=== PATIENT | female | born 1960 | race Caucasian/White ===

== ENCOUNTER 2017-04-02 16:00 | Inpatient (IN) ==
[2017-04-02] MEDS ORDERED: LORazepam 2 MG/1 ML VIAL IV STA ×2 (16:19→17:09)
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
[2017-04-02] MEDS ORDERED: LORazepam 2 MG/1 ML VIAL ONE ×2 (16:40→17:12)
--- NOTE | 2017-04-02 16:43 | CT Report ---
History: Seizure Date: 04/02/2017 Study: CT head without contrast Comparison exam: September 01, [address] sections were obtained through the head without IV contrast. The ventricles are midline in position without evidence of hydrocephalus. There is no mass or parenchymal hemorrhage. There is no gross CT evidence of acute cortical stroke. There is no extra-axial hematoma. The partially visualized paranasal sinuses and mastoid air cells are clear. Impression: No acute intracranial process. This CT exam was performed using one or more the following dose reduction techniques: Automated exposure control, adjustment of the MA and/or KV according to patient size, or use of iterative reconstruction technique. PROCEDURE INTERPRETED AT [facility] DEPARTMENT OF RADIOLOGY Final Report Signed by: Dr. Maia Hinkle
[2017-04-02 17:19] LABS: Apearance,Urine Slightly Hazy (Clear); Bacteria,Urine Many /HPF (Few); Bilirubin,Urine Negative (Negative); Blood, Urine Negative (Negative); Glucose,Urine (UA) Negative (Negative); Ketones,Urine Negative (Negative); Mucus,Urine Occasional /LPF (Occasional); Nitrite,Urine Negative (Negative); Protein,Urine Negative; RBC,Urine 3 /HPF (0-4); Squamous Epithelial Cell,Urine Few /HPF (0-10); Urine Color Yellow (Yellow); Urine Specific Gravity 1.017 (1.001-1.035); Urine Urobilinogen < 2.0 EU/DL (0.2-1.0); WBC,Urine 15 /HPF (0-6)
--- NOTE | 2017-04-02 17:20 | EKG Report ---
Stationary ECG Study [facility] ER Test Date: 04/02/2017 5:18:44 PM Pat Name: LISA PEREZ Department: Room: Gender: F Senior Power Scheduler: : 1960 Requested by: Salazar Buck Order Number: [id number] Reading MD: ARIK GAR Intervals [place] Rate: 118 P: 63 TX: 129 QRS: -7 QRSD: 75 T: 52 QT: 340 QTc: 410 Interpretive Statements SINUS TACHYCARDIA LEFT ATRIAL ENLARGEMENT POSSIBLE RIGHT VENTRICULAR CONDUCTION DELAY WARNING: DATA QUALITY MAY AFFECT INTERPRETATION Electronically Signed On 04-03-17 09:04:44 CDT by ARIK GAR [email or web address]
[2017-04-02 17:29] LABS: Barbiturates Screen,Urine Negative (Negative); Benzodiazepines Screen,Urine Negative (Negative); Cannabinoid Screen,Urine Negative (Negative); Opiate Screen,Urine Positive (Negative); Phencyclidine Screen,Urine Negative (Negative)
[2017-04-02 17:37] LABS: Alanine Aminotransferase 18 U/L (13-56); Albumin 3.8 G/DL (3.4-5.0); Alkaline Phosphatase 145 U/L (45-117); Aspartate Amino Transferase 18 U/L (0-37); Bilirubin,Total < 0.39 MG/DL (0.2-1.0); Blood Urea Nitrogen 15 MG/DL (7-18); Calcium 9.6 MG/DL (8.5-10.1); Glucose 101 MG/DL (74-106); Osmolality,Calculated 279.4 MOS/KG (273-304); Potassium 4.6 MMOL/L (3.5-5.1); Sodium 140 MMOL/L (136-145); Total Protein 7.3 G/DL (6.4-8.3); Troponin I Only < 0.015 NG/ML (0.00-0.045)
[2017-04-02] MEDS ORDERED: SODIUM CHLORIDE 0.9% 1,000 ML IV STA (18:02)
[2017-04-02] MEDS ORDERED: LEVOFLOXACIN INJ 750 MG in PREMIX 1 EACH IV STA (18:16)
[2017-04-02] MEDS ORDERED: LORazepam 2 MG/1 ML VIAL IV PRN ×2 (18:21→19:44)
[2017-04-02] MEDS ORDERED: LEVOFLOXACIN INJ 150 ML IV ONE (18:33)
[2017-04-02] MEDS ORDERED: ONDANSETRON 4 MG/2 ML VIAL IV PRN (18:36)
[2017-04-02] MEDS ORDERED: MORPHINE 2 MG/1 ML SYRINGE IV PRN (18:36)
[2017-04-02] MEDS ORDERED: guaiFENesin/DM ER 600-30 MG TABLET PO PRN (18:36)
[2017-04-02] MEDS ORDERED: ACETAMINOPHEN 325 MG TABLET PO PRN (18:36)
[2017-04-02] MEDS ORDERED: NICOTINE 21 MG/24 HR PATCH TRANSDERM PRN (18:36)
[2017-04-02] MEDS ORDERED: diphenhydrAMINE CAP 25 MG CAPSULE PO PRN (18:36)
[2017-04-02] MEDS ORDERED: DOCUSATE SODIUM 100 MG CAPSULE PO PRN (18:36)
--- NOTE | 2017-04-02 18:45 | XRay Report ---
History: Aspiration Date: 04/02/2017 Study: Chest x-ray AP portable Comparison exam: January 20, 2014 There is cardiomegaly. The pulmonary vasculature is upper normal. There is no mediastinal mass. There is no pleural effusion. Lungs are grossly clear for shallow breath. There are numerous old rib fractures on the right. Impression: Cardiomegaly without overt CHF. Shallow inspiration PROCEDURE INTERPRETED AT [facility] DEPARTMENT OF RADIOLOGY Final Report Signed by: Dr. Maia Hinkle
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
[2017-04-02 19:03] LABS: Risk Ratio 2.63; Thyroid Stimulating Hormone 1.2 uIU/ml (0.358-3.74)
[2017-04-02 19:06] LABS: INR 0.9; PT Patient Result 9.7 SECS; Partial Thromboplastin Time 24.7 SECS (0-40)
[2017-04-02] MEDS ORDERED: SODIUM CHLORIDE 0.9% 2,000 ML IV ONE (20:00)
[2017-04-02] MEDS ORDERED: ENOXAPARIN 40 MG/0.4 ML SYRINGE SUBCUT SCH (21:00)
[2017-04-02 21:33] LABS: Basophils # 0.1 10*3/uL (0.0-0.2); Basophils % 0.4 % (0.0-0.8); Eosinophils # 0.2 10*3/uL (0.0-0.87); Eosinophils % 1.5 % (0.00-10.9); Hematocrit 41.6 VOL% (35.7-47.0); Hemoglobin 14.1 GM/DL (12.0-16.0); Immature Granulocytes % 0.4 %; Immature Granulocytes Absolute 0.06 #; Lymphocytes # 2.6 10*3/uL (1.4-4.0); Lymphocytes % 18.6 % (21.3-54.2); Mean Corpuscular HGB Conc 33.9 GM/DL (32-36); Mean Corpuscular Hemoglobin 31 PG (27-34); Mean Corpuscular Volume 91.4 FL (87-102); Mean Platelet Volume 10.1 FL (9.6-12.0); Monocytes # 0.5 10*3/uL (0.11-0.8); Monocytes % 3.5 % (1.7-12.7); Neutrophils # 10.6 10*3/uL (1.4-7.4); Neutrophils % 75.6 % (38.7-73.9); Platelet Count 346 T/CUMM (130-400); Red Blood Count 4.55 MC/CUMM (3.8-5.5); Red Cell Distribution Width 13.2 % (9.3-17.3)
[2017-04-02] MEDS: PIPERACILLIN/TAZOBACTAM 3,375 MG in SODIUM CHLORIDE 0.9% 100 ML IV SCH (21:45)
[2017-04-02] MEDS: VANCOMYCIN INJ 1,000 MG in SODIUM CHLORIDE 0.9% 250 ML IV SCH (21:45)
[2017-04-02] MEDS: SODIUM CHLORIDE 0.9% 1,000 ML IV SCH (21:46)
[2017-04-03 05:23] LABS: Basophils # 0.1 10*3/uL (0.0-0.2); Basophils % 0.5 % (0.0-0.8); Eosinophils # 0.2 10*3/uL (0.0-0.87); Eosinophils % 1.9 % (0.00-10.9); Hematocrit 33.9 VOL% (35.7-47.0); Immature Granulocytes % 0.6 %; Immature Granulocytes Absolute 0.06 #; Lymphocytes # 2.9 10*3/uL (1.4-4.0); Lymphocytes % 27.3 % (21.3-54.2); Mean Corpuscular HGB Conc 32.7 GM/DL (32-36); Mean Corpuscular Hemoglobin 31 PG (27-34); Mean Corpuscular Volume 94.2 FL (87-102); Mean Platelet Volume 10.4 FL (9.6-12.0); Monocytes # 0.6 10*3/uL (0.11-0.8); Monocytes % 5.4 % (1.7-12.7); Neutrophils # 6.9 10*3/uL (1.4-7.4); Neutrophils % 64.3 % (38.7-73.9); Red Cell Distribution Width 13.6 % (9.3-17.3); White Blood Count 10.8 T/CUMM (4-12)
[2017-04-03 05:37] LABS: Hemoglobin 11.1 GM/DL (12.0-16.0); Platelet Count 255 T/CUMM (130-400)
[2017-04-03 05:52] LABS: Calcium 8.1 MG/DL (8.5-10.1); Magnesium 2.3 MG/DL (1.8-2.4); Osmolality,Calculated 286.7 MOS/KG (273-304); Potassium 4.1 MMOL/L (3.5-5.1)
[2017-04-03] MEDS: SODIUM CHLORIDE 0.9% 1,000 ML IV SCH ×4 (06:12→17:01)
[2017-04-03] MEDS: PIPERACILLIN/TAZOBACTAM 3,375 MG in SODIUM CHLORIDE 0.9% 100 ML IV SCH (06:12)
[2017-04-03] MEDS: PANTOPRAZOLE 40 MG TABLET PO SCH (09:24)
[2017-04-03] MEDS: VANCOMYCIN INJ 1,000 MG in SODIUM CHLORIDE 0.9% 250 ML IV SCH (09:24)
--- NOTE | 2017-04-03 11:04 | Hospitalist Progress Note ---
Assessment and Plan (1) Recurrent seizures Status: Acute Assessment and plan: The patient spells are improved on Keppra. We will transition to oral Keppra and consider discharge home tomorrow. In the meantime we will continue oral antibiotic for mild urinary tract infection. Current Visit: Yes (2) Hypotension Status: Acute Current Visit: Yes (3) Urinary tract infection Status: Acute Current Visit: Yes Hospitalist: Subjective Interval history: This patient has a history of brain injury and subsequent seizure disorder. She states that her outpatient physician did not refill her Keppra. The patient came to the hospital with status epilepticus. She has improved after IV Keppra overnight. The patient is ready for transfer to the floor. Exam - Constitutional Vitals: Period Temp Pulse Resp BP Sys/Whitehead Pulse Ox Last 24 Hr 98.2 F-99.9 F 78-121 14-20 69-143/43-93 18-100 Exam: Constitutional System: Mild distress. No tremulousness. Head: Normocephalic, atraumatic. Ears, Nose and Throat System: No evidence of Otitis or Mastoiditis. No epistaxis or discharge Eyes System: Pupils equal, round, and reactive. Extraocular muscles intact. Neck: Supple, without adenopathy, No jugular venous distention. No thyromegaly , neck mass, or prior surgery apparent. Respiratory System: Chest clear to auscultation. Cardiovascular System: Heart with regular rate and rhythm. No murmur. GI System: Abdomen soft, nontender. Normo active bowel sounds present. Musculoskeletal System: limbs with no pedal edema. Full distal pulses. Neurological System: No discernable sensory deficit. No aphasia Psychiatric System: Conversation is rational Results - Labs CBC & BMP: 04/03/17 04:56 04/03/17 04:56 Lab Results: I have reviewed the past 24 hour labs Quality Measures - Stroke Symptom Onset Unknown: No
[2017-04-03] MEDS: CIPROFLOXACIN 500 MG TABLET PO SCH ×2 (12:40→21:14)
[2017-04-03] MEDS: levETIRAcetam 500 MG TABLET PO SCH ×2 (12:40→21:14)
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
[2017-04-03] MEDS ORDERED: LEVOFLOXACIN INJ 500 MG in PREMIX 1 EACH IV SCH (18:00)
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
[2017-04-04] MEDS ORDERED: ASPIRIN EC 81 MG TABLET PO SCH (09:00)
[2017-04-04] MEDS: CIPROFLOXACIN 500 MG TABLET PO SCH (09:28)
[2017-04-04] MEDS: levETIRAcetam 500 MG TABLET PO SCH (09:28)
[2017-04-04] MEDS: PANTOPRAZOLE 40 MG TABLET PO SCH (09:30)
--- NOTE | 2017-04-04 12:42 | Magnetic Resonance Report ---
Exam: MRI brain without contrast Exam date: April 04, 2017 at 1014 hours Indication: 57-year-old female with new onset seizures Comparison: No relevant comparisons Technique: Multiplanar, multisequence magnetic resonance imaging of the brain without intravenous contrast was performed in routine fashion. Axial, coronal and sagittal images submitted for interpretation Findings: Parenchyma: No mass or midline shift. No intra or extra-axial. No abnormal dural or parenchymal signal abnormality. No abnormal enhancement Ventricles and sulci: Normal in size and configuration Posterior fossa: Cerebellum, brainstem and cervicomedullary junction are preserved Orbits and sinuses: Globes and orbits are intact. Periorbital and pericavernous spaces are normal. No paranasal sinus inflammatory changes Sella: Pituitary is normal. Osseous: No abnormality of the skull base or calvarium is identified Impression: 1. Unremarkable noncontrast MRI brain. PROCEDURE INTERPRETED AT [facility] DEPARTMENT OF RADIOLOGY Final Report Signed by: Scottie Jo
[2017-04-04 21:39] VITALS: BP 131/73
== END 2017-04-04 16:00 | disposition home or self-care (01) | DRG 872 ==
LOC: EDUNIT# → EDBD → N.ED 16:00 → SUATTDRO 18:19 → N.EDINP 18:19 → N.ICU 19:19 → N.2E 04-03 15:05
PROVIDERS: ADMIT Family Medicine

== ENCOUNTER 2018-05-31 12:18 | Inpatient (IN) ==
[2018-05-31] MEDS ORDERED: ONDANSETRON 4 MG/2 ML VIAL IV PRN (15:01)
[2018-05-31 15:19] LABS: Allen Test Positive; Pt O2 Delivery Device Ventilator
[2018-05-31 15:20] LABS: ABG Base Excess 6.1 MMOL/L (-2.5-2.5); ABG HCO3 29.9 MMOL/L (20-26); ABG Oxygen Saturation 97.6 % (95-100); ABG PCO2 46.4 MM HG (35-48); ABG PH 7.435 (7.35-7.45); ABG PO2 98.7 MM HG (80-95); ABG TCO2 28.2 MMOL/L (23-27)
[2018-05-31 15:28] LABS: Apearance,Urine Slightly Hazy (Clear); Bilirubin,Urine Negative (Negative); Blood, Urine Small mg/dL (Negative); Glucose,Urine (UA) Negative (Negative); Hyaline Casts,Urine 5 /LPF (0-3); Ketones,Urine Negative (Negative); Mucus,Urine Occasional /LPF (Occasional); Nitrite,Urine Negative (Negative); Protein,Urine Negative; Urine Color Yellow (Yellow); Urine Specific Gravity 1.006 (1.001-1.035); Urine Urobilinogen < 2.0 EU/DL (0.2-1.0); WBC,Urine 3 /HPF (0-6)
[2018-05-31] MEDS: SODIUM CHLORIDE 0.9% 1,000 ML IV SCH (15:40)
[2018-05-31] MEDS: cefTRIAXone 1,000 MG in SYRINGE 1 EACH IV SCH (15:40)
[2018-05-31] MEDS: FAMOTIDINE 20 MG/2 ML VIAL IV SCH (15:44)
[2018-05-31] MEDS: ENOXAPARIN 30 MG/0.3 ML SYRINGE SUBCUT SCH (15:44)
[2018-05-31] MEDS: LEVOFLOXACIN INJ 750 MG in PREMIX 1 EACH IV SCH (15:46)
[2018-05-31 16:27] LABS: Basophils # 0.1 10*3/uL (0.0-0.2); Basophils % 0.2 % (0.0-0.8); Eosinophils % 0.1 % (0.00-10.9); Hematocrit 28.7 VOL% (35.7-47.0); Hemoglobin 9.7 GM/DL (12.0-16.0); Immature Granulocytes % 2.9 %; Immature Granulocytes Absolute 0.78 #; Lymphocytes # 1.9 10*3/uL (1.4-4.0); Lymphocytes % 7.1 % (21.3-54.2); Mean Corpuscular HGB Conc 33.8 GM/DL (32-36); Mean Corpuscular Hemoglobin 31 PG (27-34); Mean Corpuscular Volume 90.3 FL (87-102); Mean Platelet Volume 10.4 FL (9.6-12.0); Monocytes # 1.4 10*3/uL (0.11-0.8); Monocytes % 5.1 % (1.7-12.7); Neutrophils # 22.8 10*3/uL (1.4-7.4); Neutrophils % 84.6 % (38.7-73.9); Platelet Count 384 T/CUMM (130-400); Red Blood Count 3.18 MC/CUMM (3.8-5.5); Red Cell Distribution Width 13.7 % (9.3-17.3)
[2018-05-31 16:49] LABS: Lactic Acid 1.7 MMOL/L (0.4-2.0)
[2018-05-31 16:51] LABS: Band Neutrophils 1 % (0-10); Hypochromasia 1+; Lymphocytes 7 % (20-55); Platelet Estimate Adequate; Polychromasia Few; Segmented Neutrophils 85 % (50-85); Total Cells Counted 100
[2018-05-31 17:02] LABS: Albumin 1.5 G/DL (3.4-5.0); Bilirubin,Total 0.4 MG/DL (0.2-1.0); Calcium 7.6 MG/DL (8.5-10.1); Osmolality,Calculated 254.2 MOS/KG (273-304); Potassium 3.7 MMOL/L (3.5-5.1); Total Protein 5.8 G/DL (6.4-8.3)
[2018-05-31 17:04] LABS: Troponin I 0.107 NG/ML (0.00-0.045)
[2018-05-31] MEDS ORDERED: MAGNESIUM SULF RIDER 2 GM in PREMIX 1 EACH IV ONE (18:13)
[2018-05-31] MEDS: MIDAZOLAM 100 MG in SODIUM CHLORIDE 0.9% 80 ML IV PRN (18:23)
[2018-05-31] MEDS: MORPHINE 4 MG/1 ML VIAL IV PRN (20:18)
[2018-06-01] MEDS: SODIUM CHLORIDE 0.9% 1,000 ML IV SCH ×2 (00:11→09:02)
[2018-06-01] MEDS: MORPHINE 4 MG/1 ML VIAL IV PRN (01:43)
[2018-06-01] MEDS ORDERED: VECURONIUM 10 MG VIAL IV ONE (01:49)
[2018-06-01] MEDS: VECURONIUM 10 MG VIAL IV PRN ×2 (01:54→19:58)
[2018-06-01] MEDS: ACETAMINOPHEN 325 MG TABLET PER TUBE PRN (02:18)
[2018-06-01 03:31] LABS: Basophils % 0.2 % (0.0-0.8); Eosinophils # 0.1 10*3/uL (0.0-0.87); Eosinophils % 0.4 % (0.00-10.9); Hematocrit 24.7 VOL% (35.7-47.0); Hemoglobin 8.3 GM/DL (12.0-16.0); Immature Granulocytes % 2.5 %; Immature Granulocytes Absolute 0.48 #; Lymphocytes # 2.1 10*3/uL (1.4-4.0); Lymphocytes % 10.6 % (21.3-54.2); Mean Corpuscular HGB Conc 33.6 GM/DL (32-36); Mean Corpuscular Hemoglobin 30 PG (27-34); Mean Corpuscular Volume 89.5 FL (87-102); Mean Platelet Volume 10.6 FL (9.6-12.0); Monocytes # 1.1 10*3/uL (0.11-0.8); Monocytes % 5.5 % (1.7-12.7); Neutrophils # 15.8 10*3/uL (1.4-7.4); Neutrophils % 80.8 % (38.7-73.9); Platelet Count 340 T/CUMM (130-400); Red Blood Count 2.76 MC/CUMM (3.8-5.5); Red Cell Distribution Width 13.9 % (9.3-17.3); White Blood Count 19.5 T/CUMM (4-12)
[2018-06-01 03:37] LABS: ABG Base Excess 5.7 MMOL/L (-2.5-2.5); ABG HCO3 29.3 MMOL/L (20-26); ABG PCO2 39.1 MM HG (35-48); ABG PH 7.493 (7.35-7.45); ABG PO2 86.6 MM HG (80-95); ABG TCO2 30.5 MMOL/L (23-27); Allen Test Positive; Pt O2 Delivery Device Ventilator
[2018-06-01 04:07] LABS: Albumin 1.4 G/DL (3.4-5.0); Bilirubin,Total 0.5 MG/DL (0.2-1.0); Calcium 7.2 MG/DL (8.5-10.1); Osmolality,Calculated 256.8 MOS/KG (273-304); Potassium 3.6 MMOL/L (3.5-5.1); Total Protein 5.1 G/DL (6.4-8.3)
[2018-06-01 04:09] LABS: Troponin I 0.311 NG/ML (0.00-0.045)
[2018-06-01 04:11] LABS: Risk Ratio 3.53; Thyroid Stimulating Hormone 0.407 uIU/ml (0.358-3.74); VLDL CHOLESTEROL 23.4 MG/DL
[2018-06-01] MEDS: FAMOTIDINE 20 MG/2 ML VIAL IV SCH ×2 (04:27→15:33)
[2018-06-01 04:40] LABS: ABG Oxygen Saturation 97.2 % (95-100)
[2018-06-01] MEDS: PROPOFOL 1,000 MG/100 ML BOTTLE IV SCH ×2 (06:48→20:28)
[2018-06-01] MEDS ORDERED: FUROSEMIDE 40 MG/4 ML VIAL IV ONE (07:26)
[2018-06-01] MEDS: MIDAZOLAM 100 MG in SODIUM CHLORIDE 0.9% 80 ML IV PRN ×2 (09:02→21:12)
[2018-06-01] MEDS: LEVOFLOXACIN INJ 750 MG in PREMIX 1 EACH IV SCH (15:25)
[2018-06-01] MEDS: cefTRIAXone 1,000 MG in SYRINGE 1 EACH IV SCH (15:27)
[2018-06-01] MEDS: ENOXAPARIN 30 MG/0.3 ML SYRINGE SUBCUT SCH (15:29)
[2018-06-02] MEDS: FAMOTIDINE 20 MG/2 ML VIAL IV SCH ×2 (03:03→15:49)
[2018-06-02 03:58] LABS: ABG Base Excess 4.6 MMOL/L (-2.5-2.5); ABG PCO2 33.8 MM HG (35-48); ABG PH 7.521 (7.35-7.45); ABG PO2 83.3 MM HG (80-95); ABG TCO2 28.1 MMOL/L (23-27); Allen Test Positive; Pt O2 Delivery Device Ventilator
[2018-06-02 04:00] LABS: ABG Oxygen Saturation 97.2 % (95-100)
[2018-06-02] MEDS: SODIUM CHLORIDE 0.9% 1,000 ML IV SCH ×2 (05:02→16:06)
[2018-06-02 05:48] LABS: Basophils % 0.1 % (0.0-0.8); Eosinophils # 0.1 10*3/uL (0.0-0.87); Eosinophils % 0.9 % (0.00-10.9); Hematocrit 24.7 VOL% (35.7-47.0); Hemoglobin 7.9 GM/DL (12.0-16.0); Immature Granulocytes % 5.3 %; Immature Granulocytes Absolute 0.76 #; Lymphocytes # 1.5 10*3/uL (1.4-4.0); Lymphocytes % 10.5 % (21.3-54.2); Mean Corpuscular Hemoglobin 29 PG (27-34); Mean Corpuscular Volume 91.5 FL (87-102); Monocytes % 7.1 % (1.7-12.7); Neutrophils # 10.8 10*3/uL (1.4-7.4); Neutrophils % 76.1 % (38.7-73.9); Platelet Count 355 T/CUMM (130-400); Red Cell Distribution Width 14.2 % (9.3-17.3); White Blood Count 14.2 T/CUMM (4-12)
[2018-06-02 06:11] LABS: Calcium 7.3 MG/DL (8.5-10.1); Osmolality,Calculated 267.2 MOS/KG (273-304); Potassium 3.4 MMOL/L (3.5-5.1)
[2018-06-02 06:17] LABS: Prealbumin 3.5 MG/DL (20-40)
[2018-06-02 06:53] LABS: Band Neutrophils 5 % (0-10); Eosinophils 1 % (0-10); Lymphocytes 11 % (20-55); Platelet Estimate Normal; Segmented Neutrophils 78 % (50-85); Total Cells Counted 100
[2018-06-02 06:54] LABS: Anisocytosis 1+
[2018-06-02] MEDS: PROPOFOL 1,000 MG/100 ML BOTTLE IV SCH ×2 (07:00→09:58)
[2018-06-02] MEDS: POTASSIUM CHLORIDE 20 MEQ/15 ML UDCUP PER TUBE SCH ×4 (08:38→20:24)
[2018-06-02] MEDS: MIDAZOLAM 100 MG in SODIUM CHLORIDE 0.9% 80 ML IV PRN (09:56)
[2018-06-02] MEDS ORDERED: POTASSIUM PHOSPHATE 15 MMOL in SODIUM CHLORIDE 0.9% 100 ML IV ONE (13:00)
[2018-06-02] MEDS: ACETAMINOPHEN 325 MG TABLET PER TUBE PRN (13:45)
[2018-06-02] MEDS: cefTRIAXone 1,000 MG in SYRINGE 1 EACH IV SCH (15:33)
[2018-06-02] MEDS: ENOXAPARIN 30 MG/0.3 ML SYRINGE SUBCUT SCH (15:34)
[2018-06-02] MEDS: LEVOFLOXACIN INJ 750 MG in PREMIX 1 EACH IV SCH (16:04)
[2018-06-02] MEDS: NYSTATIN POWDER 15 GM BOTTLE TOP SCH ×2 (16:05→20:24)
[2018-06-03] MEDS: PROPOFOL 1,000 MG/100 ML BOTTLE IV SCH ×2 (00:01→10:41)
[2018-06-03] MEDS: FAMOTIDINE 20 MG/2 ML VIAL IV SCH ×2 (03:28→15:25)
[2018-06-03 05:06] LABS: Basophils % 0.2 % (0.0-0.8); Eosinophils # 0.2 10*3/uL (0.0-0.87); Eosinophils % 1.2 % (0.00-10.9); Hematocrit 23.9 VOL% (35.7-47.0); Hemoglobin 7.6 GM/DL (12.0-16.0); Immature Granulocytes % 5.8 %; Immature Granulocytes Absolute 0.88 #; Lymphocytes # 1.9 10*3/uL (1.4-4.0); Lymphocytes % 12.3 % (21.3-54.2); Mean Corpuscular HGB Conc 31.8 GM/DL (32-36); Mean Corpuscular Hemoglobin 29 PG (27-34); Mean Corpuscular Volume 92.3 FL (87-102); Monocytes % 6.8 % (1.7-12.7); Neutrophils # 11.2 10*3/uL (1.4-7.4); Neutrophils % 73.7 % (38.7-73.9); Platelet Count 388 T/CUMM (130-400); Red Blood Count 2.59 MC/CUMM (3.8-5.5); Red Cell Distribution Width 14.6 % (9.3-17.3); White Blood Count 15.2 T/CUMM (4-12)
[2018-06-03 05:08] LABS: ABG HCO3 27.1 MMOL/L (20-26); ABG PCO2 37.4 MM HG (35-48); ABG PH 7.464 (7.35-7.45); ABG PO2 70.4 MM HG (80-95); Pt O2 Delivery Device Ventilator
[2018-06-03 05:40] LABS: Calcium 7.2 MG/DL (8.5-10.1); Osmolality,Calculated 274.8 MOS/KG (273-304); Potassium 4.5 MMOL/L (3.5-5.1)
[2018-06-03 05:43] LABS: Lymphocytes 14 % (20-55); Platelet Estimate Normal; Polychromasia Few; Segmented Neutrophils 84 % (50-85); Total Cells Counted 100
[2018-06-03] MEDS: SODIUM CHLORIDE 0.9% 1,000 ML IV SCH ×3 (08:41→17:41)
[2018-06-03] MEDS: NYSTATIN POWDER 15 GM BOTTLE TOP SCH ×2 (08:42→20:09)
[2018-06-03] MEDS: MIDAZOLAM 100 MG in SODIUM CHLORIDE 0.9% 80 ML IV PRN (09:27)
[2018-06-03] MEDS: MEROPENEM 1,000 MG in SODIUM CHLORIDE 0.9% 100 ML IV SCH ×2 (12:08→19:50)
[2018-06-03] MEDS: ENOXAPARIN 30 MG/0.3 ML SYRINGE SUBCUT SCH (15:33)
[2018-06-03] MEDS: LEVOFLOXACIN INJ 750 MG in PREMIX 1 EACH IV SCH (15:36)
[2018-06-04] MEDS: SODIUM CHLORIDE 0.9% 1,000 ML IV SCH ×3 (02:05→19:06)
[2018-06-04] MEDS: PROPOFOL 1,000 MG/100 ML BOTTLE IV SCH ×3 (02:57→16:12)
[2018-06-04] MEDS: FAMOTIDINE 20 MG/2 ML VIAL IV SCH ×2 (02:57→15:24)
[2018-06-04] MEDS: MEROPENEM 1,000 MG in SODIUM CHLORIDE 0.9% 100 ML IV SCH ×3 (02:57→20:07)
[2018-06-04 04:27] LABS: Allen Test Positive; Pt O2 Delivery Device Ventilator
[2018-06-04 04:28] LABS: ABG Base Excess 1.5 MMOL/L (-2.5-2.5); ABG HCO3 24.6 MMOL/L (20-26); ABG Oxygen Saturation 95.7 % (95-100); ABG PCO2 32.8 MM HG (35-48); ABG PH 7.493 (7.35-7.45); ABG PO2 76.5 MM HG (80-95); ABG TCO2 25.6 MMOL/L (23-27)
[2018-06-04 06:12] LABS: Basophils % 0.2 % (0.0-0.8); Eosinophils # 0.2 10*3/uL (0.0-0.87); Eosinophils % 1.1 % (0.00-10.9); Hematocrit 23.6 VOL% (35.7-47.0); Hemoglobin 7.4 GM/DL (12.0-16.0); Immature Granulocytes Absolute 0.93 #; Lymphocytes # 1.7 10*3/uL (1.4-4.0); Lymphocytes % 8.9 % (21.3-54.2); Mean Corpuscular HGB Conc 31.4 GM/DL (32-36); Mean Corpuscular Hemoglobin 29 PG (27-34); Mean Corpuscular Volume 92.9 FL (87-102); Mean Platelet Volume 10.6 FL (9.6-12.0); Monocytes # 1.2 10*3/uL (0.11-0.8); Monocytes % 6.6 % (1.7-12.7); Neutrophils # 14.4 10*3/uL (1.4-7.4); Neutrophils % 78.2 % (38.7-73.9); Platelet Count 371 T/CUMM (130-400); Red Blood Count 2.54 MC/CUMM (3.8-5.5); Red Cell Distribution Width 14.9 % (9.3-17.3); White Blood Count 18.5 T/CUMM (4-12)
[2018-06-04 06:41] LABS: Osmolality,Calculated 279.4 MOS/KG (273-304); Potassium 4.3 MMOL/L (3.5-5.1)
[2018-06-04] MEDS: MIDAZOLAM 100 MG in SODIUM CHLORIDE 0.9% 80 ML IV PRN (08:21)
[2018-06-04] MEDS: NYSTATIN POWDER 15 GM BOTTLE TOP SCH ×2 (08:27→20:09)
[2018-06-04 09:52] LABS: Eosinophils 1 % (0-10); Hypochromasia 1+; Lymphocytes 8 % (20-55); Platelet Estimate Normal; Polychromasia Slight; Segmented Neutrophils 86 % (50-85); Total Cells Counted 100
[2018-06-04] MEDS: GABAPENTIN 300 MG CAPSULE PO SCH ×2 (14:25→20:07)
[2018-06-04] MEDS: CLOTRIMAZOLE/BETAMETHASONE CREAM 15 GM TUBE TOP SCH ×2 (15:18→20:08)
[2018-06-04] MEDS: LEVOFLOXACIN INJ 750 MG in PREMIX 1 EACH IV SCH (16:03)
[2018-06-04 17:46] LABS: Hematocrit 28.5 VOL% (35.7-47.0); Hemoglobin 9.2 GM/DL (12.0-16.0)
[2018-06-04] MEDS: ENOXAPARIN 40 MG/0.4 ML SYRINGE SUBCUT SCH (20:08)
[2018-06-05] MEDS: MEROPENEM 1,000 MG in SODIUM CHLORIDE 0.9% 100 ML IV SCH ×2 (02:44→11:27)
[2018-06-05] MEDS: FAMOTIDINE 20 MG/2 ML VIAL IV SCH ×2 (02:47→16:51)
[2018-06-05] MEDS: PROPOFOL 1,000 MG/100 ML BOTTLE IV SCH ×3 (05:22→20:14)
[2018-06-05 05:37] LABS: Prealbumin 7.4 MG/DL (20-40)
[2018-06-05 07:28] LABS: Basophils # 0.1 10*3/uL (0.0-0.2); Basophils % 0.3 % (0.0-0.8); Eosinophils # 0.2 10*3/uL (0.0-0.87); Eosinophils % 0.7 % (0.00-10.9); Hematocrit 31.1 VOL% (35.7-47.0); Hemoglobin 10.2 GM/DL (12.0-16.0); Immature Granulocytes % 5.5 %; Lymphocytes # 1.7 10*3/uL (1.4-4.0); Mean Corpuscular HGB Conc 32.8 GM/DL (32-36); Mean Corpuscular Hemoglobin 30 PG (27-34); Mean Platelet Volume 10.4 FL (9.6-12.0); Monocytes # 1.4 10*3/uL (0.11-0.8); Monocytes % 5.7 % (1.7-12.7); Neutrophils # 19.3 10*3/uL (1.4-7.4); Neutrophils % 80.8 % (38.7-73.9); Platelet Count 362 T/CUMM (130-400); Red Blood Count 3.38 MC/CUMM (3.8-5.5); Red Cell Distribution Width 15.8 % (9.3-17.3); White Blood Count 23.8 T/CUMM (4-12)
[2018-06-05 07:29] LABS: ABG Base Excess 1.1 MMOL/L (-2.5-2.5); ABG HCO3 25.4 MMOL/L (20-26); ABG PCO2 36.7 MM HG (35-48); ABG PH 7.442 (7.35-7.45); ABG TCO2 22.6 MMOL/L (23-27); Allen Test Positive; Pt O2 Delivery Device Ventilator
[2018-06-05] MEDS: MIDAZOLAM 100 MG in SODIUM CHLORIDE 0.9% 80 ML IV PRN (07:45)
[2018-06-05 08:02] LABS: Band Neutrophils 5 % (0-10); Eosinophils 1 % (0-10); Lymphocytes 8 % (20-55); Platelet Estimate Adequate; Segmented Neutrophils 81 % (50-85); Total Cells Counted 100
[2018-06-05 08:03] LABS: Hypochromasia 1+; Ovalocytes Slight
[2018-06-05] MEDS: SODIUM CHLORIDE 0.9% 1,000 ML IV SCH (08:27)
[2018-06-05] MEDS ORDERED: FUROSEMIDE 40 MG/4 ML VIAL IV ONE (09:07)
[2018-06-05] MEDS: GABAPENTIN 300 MG CAPSULE PO SCH ×2 (09:16→20:29)
[2018-06-05] MEDS: NYSTATIN POWDER 15 GM BOTTLE TOP SCH ×2 (09:20→20:29)
[2018-06-05] MEDS: CLOTRIMAZOLE/BETAMETHASONE CREAM 15 GM TUBE TOP SCH ×2 (09:20→20:28)
[2018-06-05] MEDS: cefTRIAXone 1,000 MG in SYRINGE 1 EACH IV SCH (15:27)
[2018-06-05] MEDS: LEVOFLOXACIN INJ 750 MG in PREMIX 1 EACH IV SCH (15:30)
[2018-06-05] MEDS: ENOXAPARIN 40 MG/0.4 ML SYRINGE SUBCUT SCH (20:28)
[2018-06-06] MEDS: FAMOTIDINE 20 MG/2 ML VIAL IV SCH ×2 (03:42→15:53)
[2018-06-06 04:01] LABS: ABG Base Excess 4.2 MMOL/L (-2.5-2.5); ABG HCO3 28.2 MMOL/L (20-26); ABG Oxygen Saturation 98.6 % (95-100); ABG PCO2 37.7 MM HG (35-48); ABG PH 7.477 (7.35-7.45); ABG TCO2 25.2 MMOL/L (23-27); Allen Test Positive; Pt O2 Delivery Device Ventilator
[2018-06-06] MEDS: MIDAZOLAM 100 MG in SODIUM CHLORIDE 0.9% 80 ML IV PRN ×2 (04:51→23:51)
[2018-06-06 05:35] LABS: Basophils # 0.1 10*3/uL (0.0-0.2); Basophils % 0.3 % (0.0-0.8); Eosinophils # 0.2 10*3/uL (0.0-0.87); Eosinophils % 0.8 % (0.00-10.9); Hematocrit 30.1 VOL% (35.7-47.0); Hemoglobin 9.7 GM/DL (12.0-16.0); Immature Granulocytes % 4.8 %; Immature Granulocytes Absolute 1.17 #; Lymphocytes # 2.1 10*3/uL (1.4-4.0); Lymphocytes % 8.6 % (21.3-54.2); Mean Corpuscular HGB Conc 32.2 GM/DL (32-36); Mean Corpuscular Hemoglobin 29 PG (27-34); Mean Corpuscular Volume 90.7 FL (87-102); Mean Platelet Volume 10.4 FL (9.6-12.0); Monocytes # 1.3 10*3/uL (0.11-0.8); Monocytes % 5.4 % (1.7-12.7); Neutrophils # 19.4 10*3/uL (1.4-7.4); Neutrophils % 80.1 % (38.7-73.9); Platelet Count 415 T/CUMM (130-400); Red Blood Count 3.32 MC/CUMM (3.8-5.5); Red Cell Distribution Width 14.8 % (9.3-17.3); White Blood Count 24.2 T/CUMM (4-12)
[2018-06-06 05:50] LABS: Calcium 7.5 MG/DL (8.5-10.1); Osmolality,Calculated 277.5 MOS/KG (273-304); Potassium 4.5 MMOL/L (3.5-5.1)
[2018-06-06 06:11] LABS: Atypical Lymphocytes Few; Band Neutrophils 1 % (0-10); Hypochromasia 1+; Lymphocytes 13 % (20-55); Microcytosis 1+; Segmented Neutrophils 85 % (50-85); Total Cells Counted 100
[2018-06-06 06:12] LABS: Polychromasia Slight
[2018-06-06] MEDS ORDERED: FUROSEMIDE 40 MG/4 ML VIAL IV ONE (07:56)
[2018-06-06] MEDS: NYSTATIN POWDER 15 GM BOTTLE TOP SCH ×2 (08:24→20:55)
[2018-06-06] MEDS: CLOTRIMAZOLE/BETAMETHASONE CREAM 15 GM TUBE TOP SCH ×2 (08:24→20:55)
[2018-06-06] MEDS: GABAPENTIN 300 MG CAPSULE PO SCH ×2 (08:28→20:55)
[2018-06-06] MEDS ORDERED: INFLUENZA VIRUS VACCINE 0.5 ML SYRINGE IM ONE (09:00)
[2018-06-06] MEDS: PROPOFOL 1,000 MG/100 ML BOTTLE IV SCH ×2 (10:23→18:23)
[2018-06-06] MEDS ORDERED: LIDOCAINE 2% 20 ML VIAL ONE (13:47)
[2018-06-06] MEDS: cefTRIAXone 1,000 MG in SYRINGE 1 EACH IV SCH (15:13)
[2018-06-06] MEDS: LEVOFLOXACIN INJ 750 MG in PREMIX 1 EACH IV SCH (15:51)
[2018-06-06] MEDS: ENOXAPARIN 40 MG/0.4 ML SYRINGE SUBCUT SCH (20:55)
[2018-06-06] MEDS: VECURONIUM 10 MG VIAL IV PRN (21:35)
[2018-06-07] MEDS: PROPOFOL 1,000 MG/100 ML BOTTLE IV SCH ×6 (00:07→21:41)
[2018-06-07 03:41] LABS: ABG Base Excess 4.8 MMOL/L (-2.5-2.5); ABG HCO3 28.8 MMOL/L (20-26); ABG Oxygen Saturation 99.2 % (95-100); ABG PCO2 42.2 MM HG (35-48); ABG PH 7.449 (7.35-7.45); ABG TCO2 26.6 MMOL/L (23-27); Pt O2 Delivery Device Ventilator
[2018-06-07] MEDS: FAMOTIDINE 20 MG/2 ML VIAL IV SCH ×2 (04:25→15:32)
[2018-06-07] MEDS: VECURONIUM 10 MG VIAL IV PRN (05:55)
[2018-06-07] MEDS ORDERED: FUROSEMIDE 40 MG/4 ML VIAL IV ONE (07:40)
[2018-06-07] MEDS: methylPREDNISolone SOD SUC 40 MG/1 ML VIAL IV SCH ×2 (08:15→15:36)
[2018-06-07] MEDS: GABAPENTIN 300 MG CAPSULE PO SCH ×2 (08:19→21:43)
[2018-06-07] MEDS: NYSTATIN POWDER 15 GM BOTTLE TOP SCH ×2 (08:25→21:43)
[2018-06-07] MEDS: CLOTRIMAZOLE/BETAMETHASONE CREAM 15 GM TUBE TOP SCH ×2 (08:25→21:43)
[2018-06-07 09:54] LABS: Basophils # 0.1 10*3/uL (0.0-0.2); Basophils % 0.3 % (0.0-0.8); Eosinophils # 0.2 10*3/uL (0.0-0.87); Eosinophils % 0.8 % (0.00-10.9); Hematocrit 32.3 VOL% (35.7-47.0); Hemoglobin 10.3 GM/DL (12.0-16.0); Immature Granulocytes % 4.5 %; Immature Granulocytes Absolute 0.92 #; Lymphocytes # 1.3 10*3/uL (1.4-4.0); Lymphocytes % 6.5 % (21.3-54.2); Mean Corpuscular HGB Conc 31.9 GM/DL (32-36); Mean Corpuscular Hemoglobin 29 PG (27-34); Mean Platelet Volume 10.4 FL (9.6-12.0); Monocytes # 0.9 10*3/uL (0.11-0.8); Monocytes % 4.1 % (1.7-12.7); Neutrophils # 17.2 10*3/uL (1.4-7.4); Neutrophils % 83.8 % (38.7-73.9); Platelet Count 454 T/CUMM (130-400); Red Blood Count 3.51 MC/CUMM (3.8-5.5); Red Cell Distribution Width 14.7 % (9.3-17.3); White Blood Count 20.6 T/CUMM (4-12)
[2018-06-07 10:32] LABS: Osmolality,Calculated 282.3 MOS/KG (273-304)
[2018-06-07 10:36] LABS: Anisocytosis Slight; Band Neutrophils 9 % (0-10); Lymphocytes 8 % (20-55); Platelet Estimate Normal; Segmented Neutrophils 83 % (50-85); Total Cells Counted 100
[2018-06-07 10:37] LABS: Macrocytosis Slight
[2018-06-07] MEDS: cefTRIAXone 1,000 MG in SYRINGE 1 EACH IV SCH (15:30)
[2018-06-07] MEDS: LEVOFLOXACIN INJ 750 MG in PREMIX 1 EACH IV SCH (15:38)
[2018-06-07] MEDS: MIDAZOLAM 100 MG in SODIUM CHLORIDE 0.9% 80 ML IV PRN (17:20)
[2018-06-07] MEDS: ENOXAPARIN 40 MG/0.4 ML SYRINGE SUBCUT SCH (21:43)
[2018-06-08] MEDS: methylPREDNISolone SOD SUC 40 MG/1 ML VIAL IV SCH ×3 (01:00→15:30)
[2018-06-08] MEDS: PROPOFOL 1,000 MG/100 ML BOTTLE IV SCH ×5 (02:21→20:41)
[2018-06-08 04:32] LABS: ABG Base Excess 5.2 MMOL/L (-2.5-2.5); ABG HCO3 29.1 MMOL/L (20-26); ABG Oxygen Saturation 98.2 % (95-100); ABG PH 7.441 (7.35-7.45); ABG TCO2 26.7 MMOL/L (23-27); Pt O2 Delivery Device Ventilator
[2018-06-08 06:20] LABS: Basophils # 0.1 10*3/uL (0.0-0.2); Basophils % 0.3 % (0.0-0.8); Hematocrit 33.6 VOL% (35.7-47.0); Hemoglobin 10.6 GM/DL (12.0-16.0); Immature Granulocytes % 5.3 %; Immature Granulocytes Absolute 1.08 #; Lymphocytes # 1.6 10*3/uL (1.4-4.0); Lymphocytes % 7.7 % (21.3-54.2); Mean Corpuscular HGB Conc 31.5 GM/DL (32-36); Mean Corpuscular Hemoglobin 29 PG (27-34); Mean Corpuscular Volume 92.6 FL (87-102); Mean Platelet Volume 10.6 FL (9.6-12.0); Monocytes # 0.6 10*3/uL (0.11-0.8); Monocytes % 2.9 % (1.7-12.7); Neutrophils # 17.2 10*3/uL (1.4-7.4); Neutrophils % 83.8 % (38.7-73.9); Platelet Count 492 T/CUMM (130-400); Red Blood Count 3.63 MC/CUMM (3.8-5.5); Red Cell Distribution Width 14.4 % (9.3-17.3); White Blood Count 20.5 T/CUMM (4-12)
[2018-06-08] MEDS: FAMOTIDINE 20 MG/2 ML VIAL IV SCH ×2 (06:27→15:30)
[2018-06-08 06:42] LABS: Calcium 8.1 MG/DL (8.5-10.1); Osmolality,Calculated 286.3 MOS/KG (273-304); Potassium 4.4 MMOL/L (3.5-5.1)
[2018-06-08 06:46] LABS: Prealbumin 23.3 MG/DL (20-40)
[2018-06-08 07:01] LABS: Hypochromasia 1+; Lymphocytes 3 % (20-55); Microcytosis Slight; Platelet Estimate Adequate; Segmented Neutrophils 95 % (50-85); Total Cells Counted 100
[2018-06-08] MEDS: GABAPENTIN 300 MG CAPSULE PO SCH (08:27)
[2018-06-08] MEDS: CLOTRIMAZOLE/BETAMETHASONE CREAM 15 GM TUBE TOP SCH (08:31)
[2018-06-08] MEDS: NYSTATIN POWDER 15 GM BOTTLE TOP SCH (08:31)
[2018-06-08] MEDS ORDERED: FUROSEMIDE 40 MG/4 ML VIAL IV ONE (08:35)
[2018-06-08] MEDS: MIDAZOLAM 100 MG in SODIUM CHLORIDE 0.9% 80 ML IV PRN (12:01)
[2018-06-08] MEDS: LEVOFLOXACIN INJ 750 MG in PREMIX 1 EACH IV SCH (15:30)
[2018-06-08] MEDS: cefTRIAXone 1,000 MG in SYRINGE 1 EACH IV SCH (15:30)
[2018-06-08] MEDS: ENOXAPARIN 40 MG/0.4 ML SYRINGE SUBCUT SCH (21:30)
[2018-06-09] MEDS: GABAPENTIN 300 MG CAPSULE PO SCH ×3 (00:02→22:00)
[2018-06-09] MEDS: CLOTRIMAZOLE/BETAMETHASONE CREAM 15 GM TUBE TOP SCH ×3 (00:02→21:13)
[2018-06-09] MEDS: NYSTATIN POWDER 15 GM BOTTLE TOP SCH ×3 (00:02→22:41)
[2018-06-09] MEDS: methylPREDNISolone SOD SUC 40 MG/1 ML VIAL IV SCH ×3 (00:03→17:30)
[2018-06-09] MEDS: PROPOFOL 1,000 MG/100 ML BOTTLE IV SCH ×6 (01:06→22:42)
[2018-06-09] MEDS: FAMOTIDINE 20 MG/2 ML VIAL IV SCH ×2 (03:45→15:32)
[2018-06-09 04:30] LABS: ABG Base Excess 6.4 MMOL/L (-2.5-2.5); ABG HCO3 30.3 MMOL/L (20-26); ABG PH 7.496 (7.35-7.45); ABG TCO2 26.8 MMOL/L (23-27); Allen Test Positive; Pt O2 Delivery Device Ventilator
[2018-06-09] MEDS: FUROSEMIDE 40 MG/4 ML VIAL IV SCH (09:40)
[2018-06-09] MEDS: cefTRIAXone 1,000 MG in SYRINGE 1 EACH IV SCH (15:28)
[2018-06-09] MEDS: LEVOFLOXACIN INJ 750 MG in PREMIX 1 EACH IV SCH (15:33)
[2018-06-09] MEDS: ENOXAPARIN 40 MG/0.4 ML SYRINGE SUBCUT SCH (22:00)
[2018-06-10] MEDS: methylPREDNISolone SOD SUC 40 MG/1 ML VIAL IV SCH ×3 (00:03→16:08)
[2018-06-10 03:04] LABS: Allen Test Positive; Pt O2 Delivery Device Ventilator
[2018-06-10 03:09] LABS: ABG Base Excess 6.5 MMOL/L (-2.5-2.5); ABG HCO3 30.3 MMOL/L (20-26); ABG Oxygen Saturation 98.9 % (95-100); ABG PH 7.489 (7.35-7.45); ABG TCO2 27.1 MMOL/L (23-27)
[2018-06-10] MEDS: FAMOTIDINE 20 MG/2 ML VIAL IV SCH ×2 (03:45→16:12)
[2018-06-10] MEDS: PROPOFOL 1,000 MG/100 ML BOTTLE IV SCH ×6 (04:52→22:05)
[2018-06-10 06:25] LABS: Calcium 8.2 MG/DL (8.5-10.1); Osmolality,Calculated 284.4 MOS/KG (273-304)
[2018-06-10] MEDS: NYSTATIN POWDER 15 GM BOTTLE TOP SCH ×2 (09:42→22:05)
[2018-06-10] MEDS: MULTIVITAMIN LIQUID (CENTRUM) 60 ML BOTTLE PER TUBE SCH (09:42)
[2018-06-10] MEDS: GABAPENTIN 300 MG CAPSULE PO SCH ×2 (09:42→21:15)
[2018-06-10] MEDS: FUROSEMIDE 40 MG/4 ML VIAL IV SCH (09:43)
[2018-06-10] MEDS: CLOTRIMAZOLE/BETAMETHASONE CREAM 15 GM TUBE TOP SCH ×2 (09:43→22:05)
[2018-06-10] MEDS: cefTRIAXone 1,000 MG in SYRINGE 1 EACH IV SCH (14:42)
[2018-06-10] MEDS: LEVOFLOXACIN INJ 750 MG in PREMIX 1 EACH IV SCH (15:59)
[2018-06-10] MEDS: MIDAZOLAM 100 MG in SODIUM CHLORIDE 0.9% 80 ML IV PRN (20:11)
[2018-06-10] MEDS: ENOXAPARIN 40 MG/0.4 ML SYRINGE SUBCUT SCH (21:15)
[2018-06-11] MEDS: methylPREDNISolone SOD SUC 40 MG/1 ML VIAL IV SCH ×3 (00:54→15:47)
[2018-06-11] MEDS: PROPOFOL 1,000 MG/100 ML BOTTLE IV SCH ×5 (02:03→22:19)
[2018-06-11 02:59] LABS: ABG Base Excess 6.6 MMOL/L (-2.5-2.5); ABG HCO3 30.4 MMOL/L (20-26); ABG PCO2 42.5 MM HG (35-48); ABG TCO2 27.6 MMOL/L (23-27); Allen Test Positive; Pt O2 Delivery Device Ventilator
[2018-06-11] MEDS: FAMOTIDINE 20 MG/2 ML VIAL IV SCH ×2 (03:25→15:17)
[2018-06-11 06:27] LABS: Basophils % 0.1 % (0.0-0.8); Eosinophils % 0.1 % (0.00-10.9); Hematocrit 33.5 VOL% (35.7-47.0); Immature Granulocytes % 4.3 %; Immature Granulocytes Absolute 0.73 #; Lymphocytes # 1.8 10*3/uL (1.4-4.0); Lymphocytes % 10.3 % (21.3-54.2); Mean Corpuscular HGB Conc 32.8 GM/DL (32-36); Mean Corpuscular Hemoglobin 31 PG (27-34); Mean Corpuscular Volume 92.8 FL (87-102); Mean Platelet Volume 10.6 FL (9.6-12.0); Monocytes # 0.8 10*3/uL (0.11-0.8); Monocytes % 4.4 % (1.7-12.7); Neutrophils # 13.8 10*3/uL (1.4-7.4); Neutrophils % 80.8 % (38.7-73.9); Platelet Count 601 T/CUMM (130-400); Red Blood Count 3.61 MC/CUMM (3.8-5.5); White Blood Count 17.1 T/CUMM (4-12)
[2018-06-11 06:42] LABS: Calcium 7.8 MG/DL (8.5-10.1); Osmolality,Calculated 284.4 MOS/KG (273-304); Potassium 3.8 MMOL/L (3.5-5.1)
[2018-06-11 06:50] LABS: Band Neutrophils 1 % (0-10); Hypochromasia 1+; Lymphocytes 12 % (20-55); Microcytosis Slight; Platelet Estimate Increased; Segmented Neutrophils 82 % (50-85); Total Cells Counted 100
[2018-06-11] MEDS: GABAPENTIN 300 MG CAPSULE PO SCH ×2 (09:07→21:43)
[2018-06-11] MEDS: CLOTRIMAZOLE/BETAMETHASONE CREAM 15 GM TUBE TOP SCH ×2 (09:08→21:43)
[2018-06-11] MEDS: MULTIVITAMIN LIQUID (CENTRUM) 60 ML BOTTLE PER TUBE SCH (09:08)
[2018-06-11] MEDS: FUROSEMIDE 40 MG/4 ML VIAL IV SCH (09:09)
[2018-06-11] MEDS: NYSTATIN POWDER 15 GM BOTTLE TOP SCH ×2 (09:22→21:43)
[2018-06-11 09:31] LABS: ABG Base Excess 5.1 MMOL/L (-2.5-2.5); ABG Oxygen Saturation 97.7 % (95-100); ABG PCO2 42.1 MM HG (35-48); ABG PH 7.455 (7.35-7.45); ABG TCO2 26.1 MMOL/L (23-27); Pt O2 Delivery Device Ventilator
[2018-06-11] MEDS: cefTRIAXone 1,000 MG in SYRINGE 1 EACH IV SCH (13:47)
[2018-06-11] MEDS: LEVOFLOXACIN INJ 750 MG in PREMIX 1 EACH IV SCH (15:46)
[2018-06-11] MEDS: ENOXAPARIN 40 MG/0.4 ML SYRINGE SUBCUT SCH (21:43)
[2018-06-11] MEDS: MIDAZOLAM 100 MG in SODIUM CHLORIDE 0.9% 80 ML IV PRN (22:49)
[2018-06-12] MEDS: methylPREDNISolone SOD SUC 40 MG/1 ML VIAL IV SCH ×3 (00:43→20:36)
[2018-06-12 03:19] LABS: ABG HCO3 30.8 MMOL/L (20-26); ABG Oxygen Saturation 98.4 % (95-100); ABG PCO2 42.5 MM HG (35-48); ABG PH 7.476 (7.35-7.45); ABG TCO2 27.8 MMOL/L (23-27); Allen Test Positive; Pt O2 Delivery Device Ventilator
[2018-06-12] MEDS: PROPOFOL 1,000 MG/100 ML BOTTLE IV SCH ×5 (04:45→22:25)
[2018-06-12] MEDS: FAMOTIDINE 20 MG/2 ML VIAL IV SCH ×2 (04:48→15:01)
[2018-06-12 06:27] LABS: Calcium 7.4 MG/DL (8.5-10.1); Osmolality,Calculated 287.3 MOS/KG (273-304); Potassium 3.8 MMOL/L (3.5-5.1)
[2018-06-12 06:31] LABS: Prealbumin 46.5 MG/DL (20-40)
[2018-06-12] MEDS: GABAPENTIN 300 MG CAPSULE PO SCH ×2 (08:26→20:37)
[2018-06-12] MEDS: NYSTATIN POWDER 15 GM BOTTLE TOP SCH ×2 (08:27→20:37)
[2018-06-12] MEDS: FUROSEMIDE 40 MG/4 ML VIAL IV SCH (08:28)
[2018-06-12] MEDS: LEVOFLOXACIN 500 MG TABLET PER TUBE SCH (08:52)
[2018-06-12] MEDS: levETIRAcetam LIQUID 100 MG/ML 30 ML/BOTTLE PER TUBE SCH ×2 (08:52→20:37)
[2018-06-12] MEDS: MULTIVITAMIN LIQUID (CENTRUM) 60 ML BOTTLE PER TUBE SCH (08:53)
[2018-06-12] MEDS: CLOTRIMAZOLE/BETAMETHASONE CREAM 15 GM TUBE TOP SCH ×2 (08:55→20:37)
[2018-06-12] MEDS: cefTRIAXone 1,000 MG in SYRINGE 1 EACH IV SCH (14:58)
[2018-06-12] MEDS: ENOXAPARIN 40 MG/0.4 ML SYRINGE SUBCUT SCH (20:37)
[2018-06-13] MEDS: PROPOFOL 1,000 MG/100 ML BOTTLE IV SCH ×5 (03:40→22:09)
[2018-06-13] MEDS: FAMOTIDINE 20 MG/2 ML VIAL IV SCH ×2 (03:40→15:52)
[2018-06-13 03:59] LABS: Allen Test Positive; Pt O2 Delivery Device Ventilator
[2018-06-13 04:00] LABS: ABG Base Excess 6.8 MMOL/L (-2.5-2.5); ABG HCO3 30.7 MMOL/L (20-26); ABG PCO2 46.3 MM HG (35-48); ABG PH 7.447 (7.35-7.45); ABG TCO2 28.4 MMOL/L (23-27)
[2018-06-13 05:02] LABS: Basophils % 0.1 % (0.0-0.8); Eosinophils % 0.2 % (0.00-10.9); Hematocrit 34.1 VOL% (35.7-47.0); Hemoglobin 10.8 GM/DL (12.0-16.0); Immature Granulocytes % 2.4 %; Immature Granulocytes Absolute 0.35 #; Lymphocytes # 1.8 10*3/uL (1.4-4.0); Lymphocytes % 12.6 % (21.3-54.2); Mean Corpuscular HGB Conc 31.7 GM/DL (32-36); Mean Corpuscular Hemoglobin 29 PG (27-34); Mean Corpuscular Volume 91.9 FL (87-102); Mean Platelet Volume 9.9 FL (9.6-12.0); Monocytes # 0.7 10*3/uL (0.11-0.8); Monocytes % 5.1 % (1.7-12.7); Neutrophils # 11.4 10*3/uL (1.4-7.4); Neutrophils % 79.6 % (38.7-73.9); Platelet Count 594 T/CUMM (130-400); Red Blood Count 3.71 MC/CUMM (3.8-5.5); White Blood Count 14.4 T/CUMM (4-12)
[2018-06-13 05:27] LABS: Osmolality,Calculated 282.5 MOS/KG (273-304); Potassium 3.7 MMOL/L (3.5-5.1)
[2018-06-13] MEDS: GABAPENTIN 300 MG CAPSULE PO SCH ×2 (09:06→20:42)
[2018-06-13] MEDS: LEVOFLOXACIN 500 MG TABLET PER TUBE SCH (09:06)
[2018-06-13] MEDS: levETIRAcetam LIQUID 100 MG/ML 30 ML/BOTTLE PER TUBE SCH ×2 (09:07→20:41)
[2018-06-13] MEDS: MULTIVITAMIN LIQUID (CENTRUM) 60 ML BOTTLE PER TUBE SCH (09:08)
[2018-06-13] MEDS: methylPREDNISolone SOD SUC 40 MG/1 ML VIAL IV SCH ×2 (09:08→09:32)
[2018-06-13] MEDS: FUROSEMIDE 40 MG/4 ML VIAL IV SCH (09:11)
[2018-06-13] MEDS: NYSTATIN POWDER 15 GM BOTTLE TOP SCH ×2 (09:12→20:42)
[2018-06-13] MEDS: CLOTRIMAZOLE/BETAMETHASONE CREAM 15 GM TUBE TOP SCH ×2 (09:18→20:42)
[2018-06-13] MEDS: MIDAZOLAM 100 MG in SODIUM CHLORIDE 0.9% 80 ML IV PRN (09:33)
[2018-06-13] MEDS: ENOXAPARIN 40 MG/0.4 ML SYRINGE SUBCUT SCH (20:42)
[2018-06-14] MEDS: PROPOFOL 1,000 MG/100 ML BOTTLE IV SCH ×2 (02:30→06:52)
[2018-06-14] MEDS: FAMOTIDINE 20 MG/2 ML VIAL IV SCH ×2 (02:30→16:03)
[2018-06-14 03:24] LABS: ABG Base Excess 7.8 MMOL/L (-2.5-2.5); ABG HCO3 31.6 MMOL/L (20-26); ABG Oxygen Saturation 99.4 % (95-100); ABG PCO2 46.5 MM HG (35-48); ABG PH 7.457 (7.35-7.45); ABG TCO2 29.3 MMOL/L (23-27); Allen Test Positive; Pt O2 Delivery Device Ventilator
[2018-06-14 05:12] LABS: Calcium 7.7 MG/DL (8.5-10.1); Osmolality,Calculated 285.1 MOS/KG (273-304); Potassium 3.3 MMOL/L (3.5-5.1)
[2018-06-14] MEDS: POTASSIUM CHLORIDE 20 MEQ/15 ML UDCUP PER TUBE SCH ×4 (09:34→21:20)
[2018-06-14] MEDS: levETIRAcetam LIQUID 100 MG/ML 30 ML/BOTTLE PER TUBE SCH ×2 (09:35→21:20)
[2018-06-14] MEDS: GABAPENTIN 300 MG CAPSULE PO SCH ×2 (09:35→21:21)
[2018-06-14] MEDS: NYSTATIN POWDER 15 GM BOTTLE TOP SCH ×2 (09:36→21:20)
[2018-06-14] MEDS: FUROSEMIDE 40 MG/4 ML VIAL IV SCH (09:37)
[2018-06-14] MEDS: methylPREDNISolone SOD SUC 40 MG/1 ML VIAL IV SCH (09:48)
[2018-06-14] MEDS: MULTIVITAMIN LIQUID (CENTRUM) 60 ML BOTTLE PER TUBE SCH (14:34)
[2018-06-14] MEDS: CLOTRIMAZOLE/BETAMETHASONE CREAM 15 GM TUBE TOP SCH ×2 (14:34→21:20)
[2018-06-14] MEDS: ENOXAPARIN 40 MG/0.4 ML SYRINGE SUBCUT SCH (21:21)
[2018-06-15] MEDS: FAMOTIDINE 20 MG/2 ML VIAL IV SCH ×2 (03:28→15:05)
[2018-06-15 04:23] LABS: ABG Base Excess 8.5 MMOL/L (-2.5-2.5); ABG HCO3 32.7 MMOL/L (20-26); ABG Oxygen Saturation 95.6 % (95-100); ABG PCO2 43.5 MM HG (35-48); ABG PH 7.494 (7.35-7.45); Allen Test Positive
[2018-06-15 06:57] LABS: Basophils # 0.1 10*3/uL (0.0-0.2); Basophils % 0.4 % (0.0-0.8); Eosinophils # 0.2 10*3/uL (0.0-0.87); Eosinophils % 1.2 % (0.00-10.9); Hematocrit 37.8 VOL% (35.7-47.0); Immature Granulocytes % 2.2 %; Immature Granulocytes Absolute 0.34 #; Lymphocytes # 3.2 10*3/uL (1.4-4.0); Lymphocytes % 20.3 % (21.3-54.2); Mean Corpuscular HGB Conc 31.7 GM/DL (32-36); Mean Corpuscular Hemoglobin 29 PG (27-34); Mean Platelet Volume 10.6 FL (9.6-12.0); Monocytes # 1.3 10*3/uL (0.11-0.8); Monocytes % 8.3 % (1.7-12.7); Neutrophils # 10.5 10*3/uL (1.4-7.4); Neutrophils % 67.6 % (38.7-73.9); Platelet Count 567 T/CUMM (130-400); Red Blood Count 4.11 MC/CUMM (3.8-5.5); Red Cell Distribution Width 13.8 % (9.3-17.3); White Blood Count 15.6 T/CUMM (4-12)
[2018-06-15 07:20] LABS: Calcium 8.3 MG/DL (8.5-10.1); Osmolality,Calculated 286.8 MOS/KG (273-304); Potassium 3.7 MMOL/L (3.5-5.1)
[2018-06-15] MEDS: CLOTRIMAZOLE/BETAMETHASONE CREAM 15 GM TUBE TOP SCH ×2 (09:25→20:30)
[2018-06-15] MEDS: NYSTATIN POWDER 15 GM BOTTLE TOP SCH ×2 (09:25→20:30)
[2018-06-15] MEDS: GABAPENTIN 300 MG CAPSULE PO SCH ×2 (09:26→20:30)
[2018-06-15] MEDS: FUROSEMIDE 40 MG/4 ML VIAL IV SCH (09:31)
[2018-06-15] MEDS: methylPREDNISolone SOD SUC 40 MG/1 ML VIAL IV SCH (09:38)
[2018-06-15] MEDS: levETIRAcetam LIQUID 100 MG/ML 30 ML/BOTTLE PO SCH ×2 (13:37→20:29)
[2018-06-15] MEDS: ACETAMINOPHEN 325 MG TABLET PER TUBE PRN (20:30)
[2018-06-15] MEDS: ENOXAPARIN 40 MG/0.4 ML SYRINGE SUBCUT SCH (20:30)
[2018-06-16 04:43] LABS: Allen Test Positive
[2018-06-16 04:45] LABS: ABG Base Excess 8.2 MMOL/L (-2.5-2.5); ABG HCO3 32.1 MMOL/L (20-26); ABG Oxygen Saturation 97.9 % (95-100); ABG PCO2 41.8 MM HG (35-48); ABG PH 7.503 (7.35-7.45); ABG TCO2 33.4 MMOL/L (23-27)
[2018-06-16] MEDS: FAMOTIDINE 20 MG/2 ML VIAL IV SCH (05:09)
[2018-06-16 05:21] LABS: Calcium 8.4 MG/DL (8.5-10.1); Osmolality,Calculated 281.3 MOS/KG (273-304); Potassium 3.5 MMOL/L (3.5-5.1)
[2018-06-16 05:22] LABS: Calcium 8.5 MG/DL (8.5-10.1); Osmolality,Calculated 282.1 MOS/KG (273-304); Potassium 3.5 MMOL/L (3.5-5.1)
[2018-06-16] MEDS: GABAPENTIN 300 MG CAPSULE PO SCH ×2 (08:10→20:29)
[2018-06-16] MEDS: levETIRAcetam LIQUID 100 MG/ML 30 ML/BOTTLE PO SCH (08:10)
[2018-06-16] MEDS: CLOTRIMAZOLE/BETAMETHASONE CREAM 15 GM TUBE TOP SCH ×2 (08:10→23:43)
[2018-06-16] MEDS: NYSTATIN POWDER 15 GM BOTTLE TOP SCH ×2 (08:10→23:43)
[2018-06-16] MEDS: FUROSEMIDE 40 MG TABLET PO SCH (08:10)
[2018-06-16] MEDS: levETIRAcetam 500 MG TABLET PO SCH ×2 (09:08→20:32)
[2018-06-16] MEDS: FAMOTIDINE 20 MG TABLET PO SCH ×2 (09:25→20:32)
[2018-06-16] MEDS ORDERED: DIPHENOXYLATE/ATROPINE 2.5-0.025 MG TABLET PO PRN (16:57)
[2018-06-16] MEDS: LOPERAMIDE 2 MG CAPSULE PO PRN (17:37)
[2018-06-16] MEDS: ENOXAPARIN 40 MG/0.4 ML SYRINGE SUBCUT SCH (20:29)
[2018-06-17] MEDS: LOPERAMIDE 2 MG CAPSULE PO PRN (05:27)
[2018-06-17 06:00] LABS: Calcium 8.2 MG/DL (8.5-10.1); Osmolality,Calculated 277.4 MOS/KG (273-304); Potassium 3.2 MMOL/L (3.5-5.1)
[2018-06-17] MEDS: PROPOFOL 1,000 MG/100 ML BOTTLE IV SCH (08:28)
[2018-06-17] MEDS: POTASSIUM CHLORIDE 20 MEQ TABLET PO PRN ×4 (08:30→17:15)
[2018-06-17] MEDS: NYSTATIN POWDER 15 GM BOTTLE TOP SCH ×2 (08:30→21:26)
[2018-06-17] MEDS: GABAPENTIN 300 MG CAPSULE PO SCH ×2 (08:30→21:25)
[2018-06-17] MEDS: CLOTRIMAZOLE/BETAMETHASONE CREAM 15 GM TUBE TOP SCH ×2 (08:30→21:26)
[2018-06-17] MEDS: FAMOTIDINE 20 MG TABLET PO SCH ×2 (08:30→21:25)
[2018-06-17] MEDS: levETIRAcetam 500 MG TABLET PO SCH ×2 (08:30→21:25)
[2018-06-17] MEDS: FUROSEMIDE 40 MG TABLET PO SCH (08:30)
[2018-06-17] MEDS: ENOXAPARIN 40 MG/0.4 ML SYRINGE SUBCUT SCH (21:25)
[2018-06-18] MEDS: ACETAMINOPHEN 325 MG TABLET PER TUBE PRN (02:49)
[2018-06-18 04:44] LABS: Basophils # 0.1 10*3/uL (0.0-0.2); Basophils % 0.7 % (0.0-0.8); Eosinophils # 0.3 10*3/uL (0.0-0.87); Eosinophils % 1.9 % (0.00-10.9); Hematocrit 36.7 VOL% (35.7-47.0); Hemoglobin 11.7 GM/DL (12.0-16.0); Immature Granulocytes % 2.7 %; Immature Granulocytes Absolute 0.41 #; Lymphocytes # 4.6 10*3/uL (1.4-4.0); Lymphocytes % 29.7 % (21.3-54.2); Mean Corpuscular HGB Conc 31.9 GM/DL (32-36); Mean Corpuscular Hemoglobin 29 PG (27-34); Mean Platelet Volume 9.9 FL (9.6-12.0); Monocytes # 1.4 10*3/uL (0.11-0.8); Monocytes % 8.8 % (1.7-12.7); Neutrophils # 8.6 10*3/uL (1.4-7.4); Neutrophils % 56.2 % (38.7-73.9); Platelet Count 390 T/CUMM (130-400); Red Blood Count 3.99 MC/CUMM (3.8-5.5); Red Cell Distribution Width 13.7 % (9.3-17.3); White Blood Count 15.4 T/CUMM (4-12)
[2018-06-18 05:14] LABS: Calcium 8.2 MG/DL (8.5-10.1); Osmolality,Calculated 278.4 MOS/KG (273-304); Potassium 3.6 MMOL/L (3.5-5.1)
[2018-06-18] MEDS: FAMOTIDINE 20 MG TABLET PO SCH ×2 (08:46→20:38)
[2018-06-18] MEDS: FUROSEMIDE 40 MG TABLET PO SCH (08:47)
[2018-06-18] MEDS: CHOLECALCIFEROL 1,000 UNIT TABLET PO SCH (08:47)
[2018-06-18] MEDS: levETIRAcetam 500 MG TABLET PO SCH ×2 (08:47→20:38)
[2018-06-18] MEDS: POTASSIUM CHLORIDE 20 MEQ TABLET PO PRN (08:47)
[2018-06-18] MEDS: GABAPENTIN 300 MG CAPSULE PO SCH ×2 (08:47→20:38)
[2018-06-18] MEDS: CLOTRIMAZOLE/BETAMETHASONE CREAM 15 GM TUBE TOP SCH ×2 (08:48→20:38)
[2018-06-18] MEDS: NYSTATIN POWDER 15 GM BOTTLE TOP SCH ×2 (08:48→20:38)
[2018-06-18] MEDS ORDERED: ERGOCALCIFEROL 50,000 UNIT CAPSULE PO SCH (09:00)
[2018-06-18] MEDS: LOPERAMIDE 2 MG CAPSULE PO PRN (20:38)
[2018-06-18] MEDS: ENOXAPARIN 40 MG/0.4 ML SYRINGE SUBCUT SCH (20:39)
[2018-06-19 06:07] LABS: Albumin 2.5 G/DL (3.4-5.0); Bilirubin,Total 0.6 MG/DL (0.2-1.0); Calcium 8.3 MG/DL (8.5-10.1); Osmolality,Calculated 275.4 MOS/KG (273-304); Potassium 3.5 MMOL/L (3.5-5.1)
[2018-06-19 07:41] LABS: Basophils # 0.1 10*3/uL (0.0-0.2); Basophils % 0.5 % (0.0-0.8); Eosinophils # 0.4 10*3/uL (0.0-0.87); Eosinophils % 2.2 % (0.00-10.9); Hematocrit 34.3 VOL% (35.7-47.0); Immature Granulocytes % 2.8 %; Immature Granulocytes Absolute 0.44 #; Lymphocytes # 4.8 10*3/uL (1.4-4.0); Lymphocytes % 30.4 % (21.3-54.2); Mean Corpuscular HGB Conc 32.1 GM/DL (32-36); Mean Corpuscular Hemoglobin 29 PG (27-34); Mean Corpuscular Volume 91.5 FL (87-102); Monocytes # 1.4 10*3/uL (0.11-0.8); Neutrophils # 8.7 10*3/uL (1.4-7.4); Neutrophils % 55.1 % (38.7-73.9); Platelet Count 347 T/CUMM (130-400); Red Blood Count 3.75 MC/CUMM (3.8-5.5); Red Cell Distribution Width 13.9 % (9.3-17.3); White Blood Count 15.7 T/CUMM (4-12)
[2018-06-19] MEDS: FAMOTIDINE 20 MG TABLET PO SCH (08:32)
[2018-06-19] MEDS: FUROSEMIDE 40 MG TABLET PO SCH (08:33)
[2018-06-19] MEDS: levETIRAcetam 500 MG TABLET PO SCH (08:33)
[2018-06-19] MEDS: GABAPENTIN 300 MG CAPSULE PO SCH (08:33)
[2018-06-19] MEDS: CHOLECALCIFEROL 1,000 UNIT TABLET PO SCH (08:33)
[2018-06-19] MEDS: NYSTATIN POWDER 15 GM BOTTLE TOP SCH (08:34)
[2018-06-19] MEDS: CLOTRIMAZOLE/BETAMETHASONE CREAM 15 GM TUBE TOP SCH (08:34)
[2018-06-19 12:03] VITALS: BP 147/84
[2018-06-19] MEDS: ACETAMINOPHEN 325 MG TABLET PER TUBE PRN (12:11)
== END 2018-06-19 13:35 | disposition home health service (06) | DRG 207 ==
LOC: SUATTDRO 14:49 → N.CC 14:49 → N.5E 06-16 11:46
PROVIDERS: ADMIT Internal Medicine; ATTEND Internal Medicine Geriatric Medicine